=== PATIENT | male | born 1975 | race Caucasian/White ===

== ENCOUNTER 2022-06-17 13:25 | Emergency (ER) | payer SELFPAY ==
[2022-06-17 13:28] VITALS: BP 199/114; PULSE 66; RESP 22; TEMP 36.2; O2SAT 96; BMI 59.5
--- NOTE | 2022-06-17 13:54 | ED.DIZZY ---
HPI - Dizziness General Chief Complaint: Dizziness/Vertigo Stated Complaint: High BP, dizzy Time Seen by Provider: 06/17/22 13:35 History of Present Illness HPI Narrative: This 47-year-old male comes in reporting vertigo symptoms, nausea, and headache. He states that he had excessive amount of alcohol yesterday. He reports drinking a bottle of Tequila. He has these symptoms now today but is able to ambulate and shows no neurologic deficits. He is concerned that his blood pressure is elevated. He arrives with a systolic pressure at 199. Other vital signs are in normal range. Related Data Home Medications Medication Instructions Recorded Confirmed losartan 100 mg tablet 100 mg PO DAILY 06/17/22 06/17/22 Previous Rx's Medication Instructions Recorded ketorolac 10 mg tablet 10 mg PO Q8H 5 days #15 tabs 06/17/22 meclizine 25 mg tablet 25 mg PO QID #20 tabs 06/17/22 Allergies Allergy/AdvReac Type Severity Reaction Status Date / Time aspirin Allergy Intermediate face Verified 06/17/22 13:33 swelling Review of Systems Status of ROS: Reports: 10 or more systems reviewed and unremarkable except as noted in History and below Narrative: Constitutional: No fevers, no weight gain or loss. Eyes: No discharge. No vision changes. HENT: No congestion, no sore throat, no ear pain. Cardiovascular: No chest pain, no palpitations. Respiratory: No shortness of breath, no wheezes, no cough. Gastrointestinal: No abdominal pain, no vomiting, no diarrhea. Genitourinary: No dysuria, no hematuria. Musculoskeletal: Normal range of motion. Skin: No rashes, no pruritis. Neurological: No weakness, sensory change, speech change. He reports vertigo symptoms. Endo/Heme/Allergies: No bruising or bleeding. No polydipsia. Pysch: no suicidality, no anxiety, no insomnia. All other systems reviewed and are negative. PFSH PFSH Social History Non-prescribed substance use: denies use Exam Narrative: Exam Narrative: Constitutional: Well-developed, well-nourished, no acute distress. HEENT: Normocephalic, atraumatic. Neck: Normal range of motion. Nontender. Supple. Heart: Regular. No murmurs. Normal rate. Intact distal pulses. Lungs: Clear to auscultation. No chest discomfort. No wheezes, rhonchi, or rales. Abdomen: Normal bowel sounds. Nontender. No rebound tenderness. Genitalia: Deferred. Back: No midline tenderness. Normal range of motion. Extremities: Normal range of motion. No injury. Skin: Intact. No rash. Warm. No erythema or pallor. Neurologic: No altered sensation. No weakness. Alert and oriented. He is able to ambulate normally. Speech is normal. Psychiatric: No suicidality. No anxiety or depression. No insomnia. Nursing notes and vitals signs are reviewed. Const: Vital Signs, click to edit/add: Vital Signs - 24 hr 06/17/22 13:28 06/17/22 14:32 Temperature 97.1 F L Pulse Rate [Right Pulse Oximeter] 66 60 Respiratory Rate 22 14 Blood Pressure [Ri ght Upper Arm] 199/114 H 133/95 H Pulse Oximetry 96 94 Oxygen Delivery Me thod Room Air Room Air Course Vital Signs Vital signs: Initial Vital Signs Temperature 97.1 F L 06/17/22 13:28 Temperature Source Temporal Artery Scan 06/17/22 13:28 Pulse Rate 66 06/17/22 13:28 Respiratory Rate 22 06/17/22 13:28 Blood Pressure 199/114 H 06/17/22 13:28 Blood Pressure Mean 142 06/17/22 13:28 Blood Pressure Position Sitting 06/17/22 13:28 Pulse Oximetry 96 06/17/22 13:28 Oxygen Delivery Method Room Air 06/17/22 13:28 Vital Signs Temperature 97.1 F L 06/17/22 13:28 Pulse Rate 66 06/17/22 13:28 Respiratory Rate 22 06/17/22 13:28 Blood Pressure 199/114 H 06/17/22 13:28 Pulse Oximetry 96 06/17/22 13:28 Oxygen Delivery Method Room Air 06/17/22 13:28 Temperature 97.1 F L 06/17/22 13:28 Pulse Rate 60 06/17/22 14:32 Respiratory Rate 14 06/17/22 14:32 Blood Pressure 133/95 H 06/17/22 14:32 Pulse Oximetry 94 06/17/22 14:32 Oxygen Delivery Method Room Air 06/17/22 14:32 MDM - Dizziness MDM Narrative Medical decision making narrative: This patient comes in reporting symptoms of vertigo, nausea, and headache. He had excessive amount of alcohol last night and this is most likely explaining his symptoms. He is ambulatory and shows no sign of neurologic deficit. He received oral doses of Zofran and meclizine an intramuscular dose of Toradol which brought relief to his symptoms. At the time of discharge the patient appears safe for outpatient management. The treatment plan is reviewed along with written and verbal return precautions. Reasons to return and the importance of close followup were also reviewed. Discharge Plan Discharge Clinical Impression: Headache, Vertigo Patient Disposition: Home, Self-Care Condition: Improved Additional Instructions: Take medication as needed and indicated. Follow up with MD or return if worsening. Prescriptions: New ketorolac 10 mg tablet 10 mg PO Q8H 5 Days Qty: 15 0RF meclizine 25 mg tablet 25 mg PO QID Qty: 20 0RF No Action losartan 100 mg tablet 100 mg PO DAILY Follow Up/Referrals: Provider,Not a Local [Primary Care Provider] - Stand Alone Forms: [employer] Info Instructions
[2022-06-17] MEDS: KETOROLAC 30 MG/ML inj IM (14:02)
[2022-06-17] MEDS: ONDANSETRON ODT 4 MG TAB PO (14:02)
[2022-06-17] MEDS: MECLIZINE HCL 25 MG TABLET PO (14:02)
[2022-06-17 14:32] VITALS: BP 133/95; PULSE 60; RESP 14; O2SAT 94
== END 2022-06-17 14:57 | disposition home or self-care (01) ==
PROVIDERS: Emergency Provider Emergency Medicine Emergency Medical Services
DX: R51.9 Headache, unspecified (principal)
CPT/HCPCS: 96372; 99283; 99284; A9270; J1885

== ENCOUNTER 2022-11-21 18:16 | Emergency (ER) | payer SELFPAY ==
[2022-11-21] VITALS (8 sets, daily range): BP systolic 132–205; BP diastolic 70–121; PULSE 74–79; RESP 18; TEMP 36.3; O2SAT 94–96; BMI 62.6
--- NOTE | 2022-11-21 18:45 | ED_ITS ---
HPI - General Adult General Chief complaint: Dizziness/Vertigo Stated complaint: Dizzy after eating food that tasted like chemicals Time Seen by Provider: 11/21/22 18:45 History of Present Illness HPI narrative: felt he ate a bad cantelope while at work. then became dizzy 47-year-old man presenting to the emergency department with complaint of dizziness. He was eating a very sweet cantaloupe and then there were a couple of pieces that were rather sour almost like they had chemicals on them. Was suddenly worried he had been poisoned. Does not endorse any particular conflict. He said then ?yeah I panicked?. Subsequently started to feel dizzy (corrected to lightheaded) and then began to breathe heavy. He says he is trying now just to relax. Admittedly he is not nearly as dizzy (lightheaded) anymore. Never had any sensation of trouble breathing. He does endorse a history of sleep apnea but does not use CPAP. He did not have chest pain or actual shortness of breath with this. He says he had a slight headache. He feels a little bit nauseated. No cardiovascular disease noted beyond hypertension. Related Data Home Medications Medication Instructions Recorded Confirmed losartan 100 mg tablet 100 mg PO DAILY 06/17/22 11/21/22 Previous Rx's Medication Instructions Recorded ketorolac 10 mg tablet 10 mg PO Q8H 5 days #15 tabs 06/17/22 meclizine 25 mg tablet 25 mg PO QID #20 tabs 06/17/22 Allergies Allergy/AdvReac Type Severity Reaction Status Date / Time aspirin Allergy Intermediate face Verified 06/17/22 13:33 swelling Review of Systems Status of ROS: Reports: 6 or more systems reviewed and unremarkable except as noted in History and below [facility] Social History Smoking Status: Never smoker How often do you have a drink containing alcohol: never AUDIT-C Alcohol total score: 0 Non-prescribed substance use: denies use Exam Narrative: Exam Narrative: Pleasant. Mildly anxious. Obese. Somewhat congested breathing in the nasopharynx consistent with body habitus. Oropharynx is moist without inflammatory changes or blisters. Lungs are clear heart with regular rate and rhythm. No murmur rub or gallop. Skin is warm and dry well-perfused peripherally. No significant edema. No apparent rash. Const: Vital Signs, click to edit/add: Vital Signs - 24 hr 11/21/22 18:22 11/21/22 19:12 11/21/22 19:14 Temperature 97.4 F L Pulse Rate 74 75 Pulse Rate [Right Pulse Oximeter] 79 Respiratory Rate 18 Blood Pressure 132/70 Blood Pressure [Ri ght Upper Arm] 205/121 H Pulse Oximetry 96 95 95 Oxygen Delivery Me thod Room Air Documenting provider has reviewed patient's vital signs: yes Course Vital Signs Vital signs: Initial Vital Signs Temperature 97.4 F L 11/21/22 18:22 Temperature Source Temporal Artery Scan 11/21/22 18:22 Pulse Rate 79 11/21/22 18:22 Respiratory Rate 18 11/21/22 18:22 Blood Pressure 205/121 H 11/21/22 18:22 Blood Pressure Mean 149 H 11/21/22 18:22 Blood Pressure Position Sitting 11/21/22 18:22 Pulse Oximetry 96 11/21/22 18:22 Oxygen Delivery Method Room Air 11/21/22 18:22 Vital Signs Temperature 97.4 F L 11/21/22 18:22 Pulse Rate 79 11/21/22 18:22 Respiratory Rate 18 11/21/22 18:22 Blood Pressure 205/121 H 11/21/22 18:22 Pulse Oximetry 96 11/21/22 18:22 Oxygen Delivery Method Room Air 11/21/22 18:22 Temperature 97.4 F L 11/21/22 18:22 Pulse Rate 75 11/21/22 19:45 Respiratory Rate 18 11/21/22 18:22 Blood Pressure 141/79 H 11/21/22 19:32 Pulse Oximetry 94 11/21/22 19:45 Oxygen Delivery Method Room Air 11/21/22 19:12 Medical Decision Making MDM Narrative Medical decision making narrative: Poisoning seems unlikely. This seems to be improved from onset. Does sound to be frankly panic attack. Will monitor for arrhythmia as well. Concerning his elevated blood pressure, monitoring over time in the emergency department this has markedly improved. Overall well and feels better more relaxed. See patient discharge ECG Data Attestation: I personally reviewed and interpreted this ECG as follows: (Normal sinus rhythm rate of 74. There are no ischemic changes acute or otherwise. Looks quite good.) Discharge Plan Discharge Clinical Impression: Lightheadedness, Elevated blood pressure, situational, Anxiety Patient Disposition: Home w/ Parent or Adult Condition: Improved Additional Instructions: Since you are starting this new diet and exercise regimen, I would follow-up with your primary doctor to review treatment for your high blood pressure and this diet and exercise regimen. It is probably time for a checkup. You also can discuss the events of today and whether not there should be further evaluation. Was a pleasure to take care of you today. Prescriptions: No Action losartan 100 mg tablet 100 mg PO DAILY ketorolac 10 mg tablet 10 mg PO Q8H 5 Days Qty: 15 0RF meclizine 25 mg tablet 25 mg PO QID Qty: 20 0RF Follow Up/Referrals: Provider,Not a Local [Primary Care Provider] - Stand Alone Forms: [employer] Info Instructions
--- NOTE | 2022-11-21 18:58 | ED.NURSE ---
Report given to RIGO Ryan.
[2022-11-21] MEDS: ONDANSETRON ODT 4 MG TAB PO (19:16)
== END 2022-11-21 19:47 | disposition home or self-care (01) ==
PROVIDERS: Emergency Provider Family Medicine
DX: R42 Dizziness and giddiness (principal); R03.0 Elevated blood-pressure reading, without diagnosis of hypertension; F41.9 Anxiety disorder, unspecified
CPT/HCPCS: 93005; 99283; 99284; A9270

== ENCOUNTER 2024-03-26 19:46 | Emergency (ER) | payer OTHER, SELFPAY ==
--- OUTSIDE RECORDS SUMMARY | 2024-03-26 19:48 | XMS_ITS | Clinical Summary ---
Author Organization [facility] Address [place], [place] [address] Care Team Providers Care Livestock Rancher Name Role Phone Mary Grant DO Primary Care Provider [phone] Allergies Active Allergy Reactions Criticality Noted Date Comments Aspirin Angioedema High 01/13/2016 Medications polyethylene glycol-electroly te (GOLYTELY) 236-22.74-6.74 -5.86 gram suspensionIndica tions:Encounter for screening colonoscopy Drink 3 liters the day before the procedure and 1 liter 6 hours prior to the procedure. 4000 mL 2 Active losartan (COZAAR) 100 mg tabletIndication s:HTN (hypertension) Take 1 Tablet (100 mg) by mouth once daily. 90 Tablet 3 4 Active Blood Pressure Monitor KitIndications:H TN (hypertension) Frequency of testing: daily 1 Each 4 Active durable medical equipment (DME)Indications :Insertional Achilles tendinopathy,Ret rocalcaneal bursitis, right [id number] Plantar Fasciitis Night Splint, Large 1 Each 4 Active Active Problems Problem Noted Date Diagnosed Date Prediabetes 12/20/2017 Chronic pansinusitis 08/29/2016 Overview (08/29/2016): Added automatically from request for surgery [id number] Morbid obesity with BMI of 45.0-49.9, adult /2 10/2015 Tobacco abuse 03/07/2016 Chronic rhinitis 03/07/2016 Immunizations Name Administration Dates Next Due Influenza, IIV3 (Age >=3 years) 02/16/2015 Influenza, IIV4 12/05/2021,03/07/2016 Pneumococcal Poly,23-Valent (Pneumovax) 03/07/20 16 Tdap 12/05/2021 Family History Medical History Relation Name Comments Hypertension Father Hypertension Mother Relation Name Status Comments Father Mother Social History Tobacco Use Types Packs/Day Years Used Date Smoking Tobacco: Former Cigarettes Smokeless Tobacco: Never Tobacco Cessation:Counseling Given: Yes Comments:Very occasionally Alcohol Use Standard Drinks/Week Comments Yes 0 (1 standard drink = 0.6 oz pur e alcohol) [facility] Utilities Answer Date Recorded Do you have trouble paying f or utilities (for example, heat, electricity, water, phone)? Yes 04/04/2023 PHQ-2 Answer Date Recorded PHQ-2 TOTAL SCORE 2 02/23/2021 Social Connections Answer Date Recorded Do you often feel lonely or isolated from those around you? 0 04/04/2023 Financial Resource Strain Answer Date R ecorded Difficulty of Paying Living Expenses 3 04/04/2023 Difficulty of Paying Living Expenses Not on file 04/04/2023 Food Insecurity Answer Date Recorded Do you worry your food will run out before you are able to buy more? 1 04/04/2023 Transportation Needs Answer Date Record ed Does lack of transportation keep you from medica l appointments? 1 04/04/2023 Does lack of transportation keep you from work, meetings or getting things that you need? 1 04/04/2023 Housing Stability Answer Date Recorded What is your housing situation today? 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 Respiratory Rate 16 12/05/2021 10:0 7 AM CDT Oxygen Saturation 96% 06/26/2023 9:33 AM CDT Inhaled Oxygen Concentration - - Weight 182.9 kg (403 lb 4.8 oz) 024 10:21 AM CDT Height 170.2 cm (5' 7) 06/26/2023 9:33 AM CDT Body Mass Index 63.17 06/26/2023 9:33 AM CDT Plan of Treatment Health Maintenance Due Date Last Done Comments HIV for age 15-65 1989 Colonoscopy through age 75 2019 Depression screening for age 12+ 02/23/2022 02/23/2021, 12/20/2017, 09/14/2016 COVID-19 vaccine series ( season) 2023 05/04/2021, 04/13/2021 Influenza for age 9-49 11/10/2023 , 03/07/2016, 02/16/2015 BMI (ht and wt on same day) for age 18+ 06/25/2024 06/26/2023, 02/08/2022, 12/05/2021, Additional history exists Lipids for age 45-75 12/05/2026 12/05/2021 Tetanus booster 12/06/2031 12/05/2021 Pneumococcal series for age 6-49 Aged Out 03/07/2016 No longer eligible based on patient's age to complete this topic Hepatitis C screening for age 18-79 Completed 12/05/2021 Tdap Completed 12/05/2021 Procedures Procedure Name Priority Date/Time Associated Diagnosis Comments ANTI HCV Add On 12/05/2021 10:00 AM CDT Need for hepatitis C screening test LIPID PANEL W REFLEX MEASURED LDL Routine 12/05/2021 10:00 AM CDT Well adult exam from Last 3 Months or Most Recently Relevant to Health Maintenance Results * LIPID PANEL W REFLEX MEASURED LDL (12/05/2021 10:00 AM CDT) CHOLESTEROL,TOTAL 157 100 - 199 mg/dL 12/05/2021 10:42 AM T [facility] TRIGLYCERIDES 146 <150 mg/dL 12/05/2021 10:42 AM T [facility] HDL CHOLESTEROL 56 >40 mg/dL 10:42 AM T [facility] NON-HDL CHOLESTEROL 101 <145 mg/dl 12/05/2021 10:42 AM T [facility] CHOL/HDL RATIO 2.80 <4.50 12/05/2021 10:42 AM CDT [facility] LDL CHOLESTEROL 72 <=130 mg/dL 12/05/2021 10:42 AM CDT [facility] VLDL CHOLESTEROL 29 <=30 mg/dL 12/05/2021 10:42 AM CDT [facility] PROVIDER ORDERED STATUS RANDOM 12/05/2021 10:42 AM CDT [facility] Blood BLOOD SPECIMEN / Unknown Venipuncture / Unknown 12/05/2021 10:00 AM CDT 12/05/2021 10:03 AM CDT Coy Luna MD CHEMISTRY Final R esult [facility] [address] [facility] [place] [address] * ANTI HCV (12/05/2021 10:00 AM CDT) HEPATITIS C ANTIBODY Non-React fabby Non-React fabby 12/05/2021 11:23 PM CDT [facility] [employer] [facility] Comment:Antibodies to HCV no t detected; does not exclude the possibility of exposure to HCV. Blood BLOOD SPECIMEN / Unknown Venipuncture / Unknown 12/05/2021 10:00 AM CDT 12/05/2021 10:03 AM CDT Coy Luna MD SEND OUTS Final R esult [facility] [address] [place] [address], [place] from Last 3 Months or Most Recently Relevant to Health Maintenance Insurance [place] [id number] [employer] Advance Directives * Full Code (Latest Code Status on File) Date Activated Date Inactivated Comments 09/25/2016 8:40 AM 09/25/2016 2:37 PM Care Teams Livestock Rancher Relationship Specialty Start Date End [place] [address] [address] PCP - General Family Practice 08/07/23
[2024-03-26 19:53] VITALS: BP 196/106; PULSE 85; RESP 16; O2SAT 96; BMI 59.5
--- NOTE | 2024-03-26 20:04 | CRLHL7_ITS ---
For Patients: As a result of the Century Cures Act, medical imaging exams and procedure reports are released immediately into your electronic medical record. You may view this report before your referring provider. If you have questions, please contact your health care provider. INDICATION: Cough. TECHNIQUE: Chest radiographs, 2 views. COMPARISON: None. FINDINGS: Cardiovascular/Mediastinum: Normal heart size. Unremarkable. Lungs: No focal consolidation. Linear bandlike opacifications of the lungs bilaterally, likely subsegmental atelectasis and/or scarring. Airways: Trachea remains midline. Pleura: No pleural effusions or pneumothorax. Bones: No acute osseous abnormalities. Upper abdomen: Unremarkable. IMPRESSION: No acute cardiopulmonary process. Dictated by Rizwan Grant MD @ 03/26/2024 8:50:19 PM (Electronically Signed)
--- NOTE | 2024-03-26 20:08 | ED.GENADULT ---
HPI - General Adult General Chief complaint: Chest Pain Stated complaint: Chest hurt, weakness, diff breathing Time Seen by Provider: 03/26/24 20:01 History of Present Illness HPI narrative: This 48-year-old male comes in reporting chest burning symptoms that started about an hour and half prior to arrival. He states that he was at work and took his break and was sitting. He was not doing anything exertional. He did state that he had a piece of pie and about 10 minutes later began having chest burning. He felt some lightheadedness but did not have any nausea, vomiting, or diaphoresis. He symptoms have now resolved. He reports that he does not have any prior heart history. He does have cardiac risk factors. He denies having any prior exercise intolerance. Related Data Home Medications ?Medication ?Instructions ?Recorded ?Confirmed losartan 100 mg tablet 100 mg PO DAILY 06/17/22 03/26/24 Previous Rx's ?Medication ?Instructions ?Recorded pantoprazole 20 mg tablet,delayed 20 mg PO DAILY #20 tabs 03/26/24 release (Protonix) Allergies Allergy/AdvReac Type Severity Reaction Status Date / Time aspirin Allergy Intermediate face Verified 06/17/22 13:33 swelling Review of Systems Status of ROS: Reports: 10 or more systems reviewed and unremarkable except as noted in History and below Narrative: Constitutional: No fevers, no weight gain or loss. Eyes: No discharge. No vision changes. HENT: No congestion, no sore throat, no ear pain. Cardiovascular: No palpitations. Respiratory: No shortness of breath, no wheezes, no cough. Gastrointestinal: No abdominal pain, no vomiting, no diarrhea. Genitourinary: No dysuria, no hematuria. Musculoskeletal: Normal range of motion. Skin: No rashes, no pruritis. Neurological: No dizziness, weakness, sensory change, speech change. Endo/Heme/Allergies: No bruising or bleeding. No polydipsia. Pysch: no suicidality, no anxiety, no insomnia. All other systems reviewed and are negative. [facility] Social History Smoking Status: Never smoker How often do you have a drink containing alcohol: never AUDIT-C Alcohol total score: 0 Non-prescribed substance use: denies use Exam Narrative: Exam Narrative: Constitutional: Well-developed, well-nourished, no acute distress. Morbidly obese. HEENT: Normocephalic, atraumatic. Neck: Normal range of motion. Nontender. Supple. Heart: Regular. No murmurs. Normal rate. Intact distal pulses. Lungs: Clear to auscultation. No chest discomfort. No wheezes, rhonchi, or rales. Abdomen: Normal bowel sounds. Nontender. No rebound tenderness. Genitalia: Deferred. Back: No midline tenderness. Normal range of motion. Extremities: Normal range of motion. No injury. Skin: Intact. No rash. Warm. No erythema or pallor. Neurologic: No altered sensation. No weakness. Alert and oriented. Psychiatric: No suicidality. No anxiety or depression. No insomnia. Nursing notes and vitals signs are reviewed. Const: Vital Signs, click to edit/add: Vital Signs - 24 hr 03/26/24 19:53 Pulse Rate [Pulse Oximeter] 85 Respiratory Rate 16 Blood Pressure [Ri ght Upper Arm] 196/106 H Pulse Oximetry 96 Oxygen Delivery Me thod Room Air Course Vital Signs Vital signs: Initial Vital Signs Pulse Rate 85 03/26/24 19:53 Pulse Rhythm Regular 03/26/24 19:53 Respiratory Rate 16 03/26/24 19:53 Blood Pressure 196/106 H 03/26/24 19:53 Blood Pressure Mean 136 H 03/26/24 19:53 Blood Pressure Position Supine 03/26/24 19:53 Pulse Oximetry 96 03/26/24 19:53 Oxygen Delivery Method Room Air 03/26/24 19:53 Vital Signs Pulse Rate 85 03/26/24 19:53 Respiratory Rate 16 03/26/24 19:53 Blood Pressure 196/106 H 03/26/24 19:53 Pulse Oximetry 96 03/26/24 19:53 Oxygen Delivery Method Room Air 03/26/24 19:53 Pulse Rate 85 03/26/24 19:53 Respiratory Rate 16 03/26/24 19:53 Blood Pressure 196/106 H 03/26/24 19:53 Pulse Oximetry 96 03/26/24 19:53 Oxygen Delivery Method Room Air 03/26/24 19:53 Medical Decision Making MDM Narrative Medical decision making narrative: This patient comes in with report of burning sensation in his chest. He reported some nausea and lightheadedness. He did not have any diaphoresis. This occurred after eating some food while at rest. He does not report any exercise intolerance or previous heart symptoms or chest discomfort when exerting himself. He is morbidly obese and does have cardiac risk factors but no prior known cardiac history. He states that these symptoms have now mostly resolved. His EKG returns with normal findings as does his labs. A repeat troponin is also negative. It does seem more likely that this was related to his GI tract. Some reflux symptoms are suspicious as a cause for his discomfort. He is okay to be discharged home. I did provide a prescription for Protonix. I also stated signs and symptoms that would indicate a need for return and re-evaluation and discuss the role of further testing for his heart such as stress testing or echocardiogram if needed. Lab Data Labs: Lab Results 03/26/24 Range/Units 19:59 WBC 7.28 (4.50-11.00) K/uL RBC 4.60 (4.30-5.90) m/uL Hgb 13.5 (13.5-17.5) gm/dL Hct 41.8 (37.0-53.0) % MCV 91 (80-100) fL MCH 29 (26-34) pg MCHC 32 (32-36) gm/dL RDW Coeff of Suzy 13.0 (11.5-15.5) % Plt Count 248 (140-440) K/uL Neut % (Auto) 63.7 (42.0-72.0) % Lymph % (Auto) 28.7 (20-44) % [place] % (Auto) 4.9 (0.0-11.0) % Eos % (Auto) 2.2 (0.0-7.0) % Baso % (Auto) 0.4 (0.0-3.0) % Neut # (Auto) 4.63 (1.7-7.0) K/uL Lymph # (Auto) 2.09 (0.90-2.90) K/uL [place] # (Auto) 0.40 (0.00-0.90) K/UL Eos # (Auto) 0.16 (0.00-0.50) K/uL Baso # (Auto) 0.03 (0.00-0.30) K/uL Abs Immat Gran (auto) 0.01 (0.00-0.30) K/uL Imm/Tot Granulo (auto) 0.1 % D-Dimer Quant (PE/DVT) 0.55 H (0.00-0.50) ug/ml Sodium 137 (135-149) mmol/L Potassium 3.9 (3.6-5.1) mmol/L Chloride 103 (96-114) mmol/L Carbon Dioxide 26 (20-32) mmol/L Anion Gap 8 (7-15) mEq/L BUN 15 (5-24) mg/dL Creatinine 0.7 (0.5-1.5) mg/dL Estimated Creat Clear 119.35 Estimated GFR 113 ml/min Glucose 161 H (60-115) mg/dL Calcium 8.6 (8.4-10.6) mg/dL Troponin I < 0.01 L (0.01-0.04) ng/mL POC Creatinine 0.1 L (0.6-1.3) mg/dl Imaging Data Chest x-ray: Radiologist's impression: No acute cardiopulmonary process. ECG Data Attestation: I personally reviewed and interpreted this ECG as follows: Interpretation: Normal sinus rhythm. Rate is 74 beats per minute. There are no ST or T-wave abnormalities. Discharge Plan Discharge Clinical Impression: Atypical chest pain Patient Disposition: Home, Self-Care Condition: Improved Additional Instructions: Take medication as prescribed. Follow up with MD for ongoing assessment. Return if worsening symptoms occur. Prescriptions: New pantoprazole [Protonix] 20 mg tablet,delayed release (DR/EC) 20 mg PO DAILY Qty: 20 2RF No Action losartan 100 mg tablet 100 mg PO DAILY Follow Up/Referrals: Provider,Not a Local [Primary Care Provider] - Stand Alone Forms: [employer] Info Instructions
[2024-03-26 20:10] LABS: Basophils Absolute Auto 0.03 K/uL (0.00-0.30); Basophils Percent Auto 0.4 % (0.0-3.0); Eosinophils Absolute Auto 0.16 K/uL (0.00-0.50); Eosinophils Percent Auto 2.2 % (0.0-7.0); Hematocrit 41.8 % (37.0-53.0); Hemoglobin* 13.5 gm/dL (13.5-17.5); Immature Granulocytes Abs Auto 0.01 K/uL (0.00-0.30); Immature Granulocytes Pct Auto 0.1 %; Lymphocytes Absolute Auto 2.09 K/uL (0.90-2.90); Lymphocytes Percent Auto 28.7 % (20-44); Mean Corpuscular HGB Conc 32 gm/dL (32-36); Mean Corpuscular Hemoglobin 29 pg (26-34); Mean Corpuscular Volume 91 fL (80-100); Monocytes Percent Auto 4.9 % (0.0-11.0); Neutrophils Absolute Auto 4.63 K/uL (1.7-7.0); Neutrophils Percent Auto 63.7 % (42.0-72.0); Platelet Count* 248 K/uL (140-440); White Blood Count* 7.28 K/uL (4.50-11.00)
[2024-03-26 20:14] LABS: Creatinine, Point-of-Care* 0.1 mg/dl (0.6-1.3)
[2024-03-26 20:17] LABS: Slide Review Reflex No
[2024-03-26 20:24] LABS: Chloride* 103 mmol/L (96-114); Potassium* 3.9 mmol/L (3.6-5.1); Sodium* 137 mmol/L (135-149)
[2024-03-26 20:27] LABS: Anion Gap 8 mEq/L (7-15); Carbon Dioxide* 26 mmol/L (20-32); Creatinine* 0.7 mg/dL (0.5-1.5); Est. Creatinine Clearance* 119.35; Estimated Glomerular Filt Rate 113 ml/min
[2024-03-26 20:28] LABS: Blood Urea Nitrogen* 15 mg/dL (5-24); Calcium* 8.6 mg/dL (8.4-10.6); Glucose* 161 mg/dL (60-115)
[2024-03-26 20:43] LABS: Troponin I* < 0.01 ng/mL (0.01-0.04)
[2024-03-26 20:49] LABS: D Dimer Quantitative* 0.55 ug/ml (0.00-0.50)
--- OUTSIDE RECORDS SUMMARY | 2024-03-26 20:50 | XMS_ITS | Clinical Summary ---
Author Organization [facility] [facility] Address [place], [place] [address] Care Team Providers Care Phone Specialist Name Role Phone Mary Grant DO Primary Care Provider [phone] Allergies Active Allergy Reactions Criticality Noted Date [...] (DME)Indications :Insertional Achilles tendinopathy,Ret rocalcaneal bursitis, right [id number] Plantar Fasciitis Night Splint, Large 1 Each 4 Active Active Problems Problem Noted Date Diagnosed Date Prediabetes 12/20/2017 Chronic pansinusitis 08/29/2016 Overview (08/29/2016): Added automatically from request for surgery [id number] Morbid obesity with BMI of 45.0-49.9, adult [...] drink = 0.6 oz pur e alcohol) [facility] Utilities Answer Date Recorded Do you have [...] 36.5 C (97.7 F) 04/22/2018 10:37 AM [employer] Respiratory Rate 16 12/05/2021 10:0 7 AM [...] - 199 mg/dL 12/05/2021 10:42 AM T [facility] TRIGLYCERIDES 146 <150 mg/dL 12/05/2021 10:42 AM T [facility] HDL CHOLESTEROL 56 >40 mg/dL 10:42 AM T [facility] NON-HDL CHOLESTEROL 101 <145 mg/dl 12/05/2021 10:42 AM T [facility] CHOL/HDL RATIO 2.80 <4.50 12/05/2021 10:42 AM CDT [facility] LDL CHOLESTEROL 72 <=130 mg/dL 12/05/2021 10:42 AM CDT [facility] VLDL CHOLESTEROL 29 <=30 mg/dL 12/05/2021 10:42 AM CDT [facility] PROVIDER ORDERED STATUS RANDOM 12/05/2021 10:42 AM CDT [facility] Blood BLOOD SPECIMEN / Unknown Venipuncture / Unknown 12/05/2021 10:00 AM CDT 12/05/2021 10:03 AM CDT Coy Luna MD CHEMISTRY Final R esult [facility] [address] [facility] [place] [address] * ANTI HCV (12/05/2021 10:00 AM CDT) HEPATITIS C ANTIBODY Non-React fabby Non-React fabby 12/05/2021 11:23 PM CDT [facility] Comment:Antibodies to HCV no t detected; does not exclude the possibility of exposure to HCV. Blood BLOOD SPECIMEN / Unknown Venipuncture / Unknown 12/05/2021 10:00 AM CDT 12/05/2021 10:03 AM CDT Coy Luna MD SEND OUTS Final R esult [facility] [address] [place] [address], [place] from Last 3 Months or Most Recently Relevant to Health Maintenance Insurance [place] [id number] [employer] Advance Directives * Full Code (Latest Code Status on File) Date Activated Date Inactivated Comments 09/25/2016 8:40 AM 09/25/2016 2:37 PM Care Teams Phone Specialist Relationship Specialty Start Date End [place] [address] PCP - General Family Practice 08/07/23
== END 2024-03-26 22:00 | disposition home or self-care (01) ==
PROVIDERS: Emergency Provider Emergency Medicine Emergency Medical Services
DX: R07.89 Other chest pain (principal)
CPT/HCPCS: 36415; 71046; 80048; 82565; 84484; 85025; 85379; 93005; 99284; 99285